=== PATIENT | female | born 2000 | race Native Hawaiian/Other Pacific Islander ===

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

== ENCOUNTER 2019-01-22 17:33 | Outpatient (CLI) | payer OTHER ==
[2019-01-22 18:47] VITALS: BP 133/81; PULSE 98; RESP 18; TEMP 97.9
== END 2019-01-22 18:25 | disposition home or self-care (01) ==
LOC: FBPOP 17:33
PROVIDERS: ATTEND Obstetrics & Gynecology
DX: O26.93 Pregnancy related conditions, unspecified, third trimester (principal); Z3A.32 32 weeks gestation of pregnancy
CPT/HCPCS: 59025; 99213

== ENCOUNTER 2019-03-01 10:19 | Outpatient (CLI) | payer OTHER ==
[2019-03-01 11:10] VITALS: BP 128/67; PULSE 112; RESP 16; TEMP 97.3
--- NOTE | 2019-03-17 14:25 | P.MSEPDOC ---
Presenting Problems - Arrival Data Date of Arrival on Unit: 03/01/19 Time of Arrival on Unit: 10:19 Mode of Transport: Ambulatory - Complaint OB-Reason for Admission/Chief Complaint: Decreased Movement Comment: Pt reports decreased movement x several days Medical History - Information : 1 Para: 0 - Gestational Age Gestational Age by PARIS (wks/days): 37 Weeks and 6 Days Review of Systems - Review of Systems Constitutional: No problems Breast: No problems ENT: No problems Cardiovascular: No problems Respiratory: No problems Gastrointestinal: No problems Genitourinary: No problems Musculoskeletal: No problems Neurological: No problems Vital Signs - Temperature Temperature: 97.3 F Temperature Source: Temporal Artery Scan - Pulse Right Sitting Pulse Oximetery Pulse Rate: 112 Pulse Assessment Method: Pulse Oximetry - Respirations Respiratory Rate: 16 Oxygen Delivery Method: Room Air O2 Sat by Pulse Oximetry: 99 - Blood Pressure Right Arm Sitting Blood Pressure: 128/67 Blood Pressure Mean: 87 Blood Pressure Source: Automatic Cuff Medical Screen Scoring (Pre) - Cervical Exam Dilation: Exam Deferred Effacement: Exam Deferred Membranes: Intact - Uterine Contractions Frequency: > or = 36 weeks =2 Duration: N/A Intensity: N/A - Maternal Vital Signs Maternal Temperature: N/A Maternal Blood Pressure: N/A Signs of Preeclampsia: N/A Maternal Respirations: N/A - Maternal Trauma Maternal Trauma: N/A - Assessment - Baby A Baseline FHR: 145 Heart Rate - NICHD Category: Category I (Normal) = 0 NST: Reactive Position: N/A Station: N/A - Total Score - Baby A Total Score - Baby A: 2 - Total Score - Baby B Total Score - Baby B: 2 - Total Score - Baby C Total Score - Baby C: 2 - Level of Risk - Baby A Level of Risk - Baby A: Low (0-5) - Level of Risk - Baby B Level of Risk - Baby B: Low (0-5) - Level of Risk - Baby C Level of Risk - Baby C: Low (0-5) Physician Notification (Pre) - Physician Notified Physician Notified Date: 03/01/19 Physician Notified Time: 10:52 Physician/Practitioner Notifed:: Josafat Spoke With: Josafat New Order Received: Yes - Notification Comment Comment: Spoke with Dr Maurice, advised 37 10/15, reports to triage with decreased movement. Reactive NST obtained, movement audible and felt by pt. Pt reportst joie medina contractions. Pt has appt . Pt to be D/C'd home. Kick counts and labor precautions to be reviewed Disposition - Disposition OB Disposition: Discharge to home, Written follow up instructions reviewed Discharge Date: 03/01/19 Discharge Time: 11:00 I agree with the RN Medical Screening Exam: Yes Risk & Benefit of care provided described in d/c instruction: Yes Diagnosis: DECREASED MOVEMENTS, THIRD TRIMESTER, FETUS 1
== END 2019-03-01 11:00 | disposition home or self-care (01) ==
LOC: FBPOP 10:19
PROVIDERS: ATTEND Obstetrics & Gynecology Obstetrics
DX: O36.8131 Decreased fetal movements, third trimester, fetus 1 (principal); Z3A.37 37 weeks gestation of pregnancy
CPT/HCPCS: 59025; 99213

== ENCOUNTER 2019-03-09 06:10 | Inpatient (IN) | payer OTHER ==
[2019-03-09] MEDS ORDERED: CARBOPROST TROMETHAMINE 250 MCG/ML 1 ML AMP IM PRN (06:24)
[2019-03-09] MEDS ORDERED: LIDOCAINE 0.5% (PF) 5 MG/ML (50 ML SDV) SQ PRN (06:24)
[2019-03-09] MEDS ORDERED: METHYLERGONOVINE 0.2 MG/ML 1 ML AMP IM PRN (06:24)
[2019-03-09] MEDS ORDERED: TERBUTALINE 1 MG/ML VIAL SQ PRN (06:24)
[2019-03-09] MEDS ORDERED: OXYTOCIN 10 UNIT/ML 1 ML VIAL IM PRN (06:24)
[2019-03-09] MEDS ORDERED: OXYTOCIN 30 UNITS/500 ML NS 30 UNIT in SALINE 1 500ML.BAG IV SCH (06:30)
[2019-03-09 06:33] VITALS: BMI 31.8
[2019-03-09] MEDS: LACTATED RINGERS 1,000 ML IV SCH ×5 (06:35→18:41)
[2019-03-09 06:40] LABS: Basophils % (A) 0 %; Eosinophils # (A) 0.2 k/uL (0-0.7); Eosinophils % (A) 1 %; HCT 37.9 % (34.0-46.0); HGB 12.6 gm/dL (11.4-16.0); Lymphocytes # (A) 2.3 k/uL (1.0-4.8); Lymphocytes % (A) 21 %; MCH 29.3 pg (25.0-35.0); MCHC 33.2 g/dL (31.0-37.0); MCV 88.4 fL (80.0-100.0); Mean Platelet Volume 7.4; Monocytes # (A) 0.5 k/uL (0-1.0); Monocytes % (A) 5 %; Neutrophils # (A) 7.7 k/uL (1.3-7.7); Neutrophils % (A) 70 %; Platelet Count 201 k/uL (150-450); RBC 4.29 m/uL (3.80-5.40); RDW 14.4 % (11.5-15.5)
[2019-03-09] MEDS ORDERED: BUTORPHANOL 1 MG/ML 1 ML VIAL IV PRN (08:50)
--- NOTE | 2019-03-09 08:50 | P.HPOB ---
History of Present Illness H&P Date: 03/09/19 Chief Complaint: IUP at 39 0/sevenths weeks This is a pleasant 18-year-old 1 para 0 at 39-0/7 weeks that presents to labor and delivery for elective induction of labor. Patient has received routine care with myself which has been essentially uncomplicated. Patient notes good movement this morning she denies concerns. On blood work she had a blood type of O+, rubella immune, RPR nonreactive, B surface antigen negative, HIV negative she did pass her one-hour Glucola with a result of 123, T dap was given and she did receive her flu shot on 02/17. Review of Systems Constitutional: Denies chills, Denies fatigue, Denies fever Ears, nose, mouth and throat: Denies headache Cardiovascular: Reports leg edema Gastrointestinal: Denies constipation, Denies diarrhea, Denies nausea, Denies vomiting Genitourinary: Reports Past Medical History History of Any Multi-Drug Resistant Organisms: None Reported Past Surgical History: Ear Surgery Additional Past Surgical History / Comment(s): Tubes as a child Past Anesthesia/Blood Transfusion Reactions: No Reported Reaction Past Psychological History: No Psychological Hx Reported Smoking Status: Never smoker Past Alcohol Use History: None Reported Past Drug Use History: None Reported - Past Family History Mother Family Medical History: Hypertension Additional Family Medical History / Comment(s): Mini Stroke Father Family Medical History: No Reported History Medications and Allergies Home Medications Medication Instructions Recorded Confirmed Type Pnv,Calcium 72/Iron/Folic Acid 1 tab PO DAILY 01/22/19 03/09/19 History [ Plus Tablet] Allergies Allergy/AdvReac Type Severity Reaction Status Date / Time amoxicillin Allergy Rash/Hives Verified 03/09/19 06:23 sumatriptan [From Imitrex] Allergy Anaphylaxis Verified 03/09/19 06:23 Exam Osteopathic Statement: *. No significant issues noted on an osteopathic structural exam other than those noted in the History and Physical/Consult. Vital Signs Temp Pulse Resp BP 03/09/19 06:27 97.0 F L 104 H 18 130/77 Intake and Output 03/08/19 03/09/19 03/09/19 22:59 06:59 14:59 Other: Weight 86.636 kg Targeted physical exam was performed on this date in general this is a well- nourished well-developed female in no acute distress, breathing is noted to be nonlabored, heart is regular rate and rhythm, abdomen is gravid and appropriate for gestational age, heart tones returned be category 1 and she is teresa every 2-3 minutes. On cervical exam she is 3/80/-2 amniotomy is performed and clear fluid was obtained. Results Result Diagrams: 03/09/19 06:30 Assessment and Plan (1) Term Current Visit: Yes Status: Acute Code(s): Z34.90 - ENCNTR FOR SUPRVSN OF NORMAL , UNSP, UNSP TRIMESTER SNOMED Code(s): 63549975 (2) Positive GBS test Current Visit: Yes Status: Acute Code(s): B95.1 - STREPTOCOCCUS, GROUP B, CAUSING DISEASES CLASSD ELSWHR SNOMED Code(s): 546955508 Plan: Patient is admitted to labor for Pitocin induction of labor. Pitocin is started per hospital protocol. Patient does desire epidural and once she starts making cervical change this will be placed by the anesthesia department per patient request. Anticipate spontaneous vaginal delivery later today.
[2019-03-09] MEDS ORDERED: fentaNYL (PF) 50 MCG/ML 5 ML AMP ONE (17:01)
[2019-03-09] MEDS ORDERED: ROPIVACAINE 5MG/ML 20ML VIAL ONE (17:01)
[2019-03-09] MEDS ORDERED: SODIUM CHLORIDE 0.9% 100 ML BAG ONE (17:01)
[2019-03-09] MEDS ORDERED: CITRIC ACID-SODIUM CITRATE 15 ML CUP PO ONE (19:20)
[2019-03-09] MEDS ORDERED: OXYTOCIN 10 UNIT/ML 1 ML VIAL ONE (19:45)
[2019-03-09] MEDS ORDERED: ONDANSETRON 4 MG/2 ML VIAL ONE (19:45)
[2019-03-09] MEDS ORDERED: PHENYLEPHRINE-0.9% NACL SYG 1 MG/10 ML SYRINGE ONE (19:45)
[2019-03-09] MEDS ORDERED: CHLOROPROCAINE 3% 30 MG/ML 20 ML VIAL ONE (19:45)
[2019-03-09] MEDS ORDERED: NALOXONE 0.4 MG/ML 1 ML VIAL IV PRN ×2 (20:05→20:24)
[2019-03-09] MEDS ORDERED: ONDANSETRON 4 MG/2 ML VIAL IVP PRN ×2 (20:05→20:24)
[2019-03-09] MEDS ORDERED: MORPHINE SULFATE 2 MG/ML SYRINGE IVP PRN (20:05)
[2019-03-09] MEDS ORDERED: diphenhydrAMINE 50 MG/ML 1 ML VIAL IVP PRN ×3 (20:05→20:24)
[2019-03-09] MEDS ORDERED: SIMETHICONE 80 MG CHEWABLE PO PRN (20:24)
[2019-03-09] MEDS ORDERED: METOCLOPRAMIDE 5 MG/ML 2 ML VIAL IVP PRN (20:24)
[2019-03-09] MEDS ORDERED: diphenhydrAMINE 50 MG CAP PO PRN (20:24)
[2019-03-09] MEDS ORDERED: ZOLPIDEM 5 MG TAB PO PRN (20:24)
[2019-03-09] MEDS ORDERED: ACETAMINOPHEN TAB 325 MG TAB PO PRN (20:24)
[2019-03-09] MEDS ORDERED: diphenhydrAMINE 25 MG CAP PO PRN (20:24)
--- NOTE | 2019-03-09 20:29 | P.OP ---
Date of Procedure: 03/09/19 Preoperative Diagnosis: IUP @ 39 0/7 weeks, arrest of first stage of labor Postoperative Diagnosis: same Procedure(s) Performed: primary LTCS Anesthesia: epidural Surgeon: Noelle Maurice Private Duty Nurse #1: Isidoro Jennings Estimated Blood Loss (ml): 500 IV fluids (ml): 1,500 Urine output (ml): 200 Pathology: other (placenta) Condition: stable Disposition: observation Indications for Procedure: arrest of dilation for 4 + hours/cervical swelling Operative Findings: Normal uterus tubes and ovaries, female delivered at 1960, weight of 7 lbs. 11 oz. with Apgars of 99 at one and 5 minutes respectively. Description of Procedure: Patient was taken back to the operating suite where epidural anesthesia was found to be adequate. She was prepped and draped in normal sterile fashion in the dorsal supine position. A Pfannenstiel skin incision was made with the scalpel and carried through the underlying layer of fascia. The fascia was then incised in the midline and the incision was extended laterally. The superior aspect of the fascial incision was then grasped lisa clamps, elevated and underlying rectus muscles dissected off sharply. Attention was then turned to the inferior aspect of the fascial incision which was grasped lisa clamps, elevated and underlying rectus muscles dissected off sharply once again. The rectus muscles were then in the midline the peritoneum was identified and entered. The incision was then extended superiorly and inferiorly with good visualization the bladder. Bladder blade was then inserted and the vesicouterine peritoneum was identified and a bladder flap was created using sharp and blunt dissection. A hysterotomy incision was made and the was encountered through the incision and delivered in the usual fashion. The was then handed off to awaiting RN, spontaneous cry was noted. The umbilical cord was then doubly clamped and cut and cord blood was then taken. The placen ta was removed manually and the uterus was cleared of all clots and debris. The uterine incision was then closed with 0 Vicryl in a running locked fashion a second layer of suture was used to obtain hemostasis. On inspection of the hysterotomy site small amount of bleeding was noted in the midportion of the incision and therefore a vijgoq-ny-xyluo suture was used to obtain hemostasis. Uterus was returned to the abdomen and the gutters were cleared of all clots and debris. The hysterotomy incision was inspected once again hemostasis was appreciated. The rectus muscles were then reapproximated. The fascial incision was then closed with 0 Vicryl in a running fashion from one lateral edge to the other. The subcu tissue was then irrigated hemostasis was appreciated and it was closed with 3-0 Vicryl in a running fashion. The skin was then closed with 4-0 Vicryl in a subarticular fashion. All counts were correct 2 patient tolerated procedure well and was taken the recovery room awake in stable condition.
[2019-03-09] MEDS ORDERED: LACTATED RINGERS 1,000 ML IV SCH (20:30)
[2019-03-09] MEDS ORDERED: OXYTOCIN 20 UNITS/1000 ML NS 1,000 ML IV SCH (20:30)
[2019-03-09] MEDS ORDERED: ACETAMINOPHEN IV (For NPO) 1,000 MG in EMPTY BAG 1 BAG IVPB ONE (21:00)
[2019-03-09] MEDS ORDERED: IBUPROFEN IV 800 MG in SODIUM CHLORIDE 0.9% 250 ML IV ONE (21:00)
--- NOTE | 2019-03-10 06:18 | P.PN ---
Progress Note - Text Date: 03/10/2019 Time: 0608 The patient is status post section Vital signs stable VAS: 0-10 Patient has no complaints of pain. The patient incurred some minimal itching yesterday, this itching is now subsiding. Pain meds to be managed by service.
[2019-03-10 07:12] LABS: Basophils # (A) 0.1 k/uL (0-0.2); Basophils % (A) 1 %; Eosinophils # (A) 0.1 k/uL (0-0.7); Eosinophils % (A) 1 %; HCT 30.6 % (34.0-46.0); Lymphocytes # (A) 1.6 k/uL (1.0-4.8); Lymphocytes % (A) 15 %; MCH 27.9 pg (25.0-35.0); MCHC 31.4 g/dL (31.0-37.0); MCV 88.6 fL (80.0-100.0); Monocytes # (A) 0.8 k/uL (0-1.0); Monocytes % (A) 7 %; Neutrophils % (A) 74 %; Platelet Count 171 k/uL (150-450); RBC 3.46 m/uL (3.80-5.40); RDW 14.5 % (11.5-15.5); WBC 10.8 k/uL (4.0-11.0)
[2019-03-10 07:17] LABS: HGB 9.6 gm/dL (11.4-16.0)
--- NOTE | 2019-03-10 08:39 | P.PNOBGPC ---
Subjective - Subjective Principal diagnosis: POD 1 LTCS Interval history: Patient has done well since her last evening. She is ambulating and voiding without difficulty. She notes positive flatus and is tolerating clear liquids without nausea or vomiting. She states her lochia is minimal. She is struggling a little with breast-feeding but continues to try. Patient reports: Reports appetite normal, Reports voiding normally, Reports pain well controlled, Reports ambulating normally : doing well Objective - Vital Signs Latest vital signs: Vital Signs Temp Pulse Resp BP Pulse Ox 03/10/19 07:54 97.7 F 83 16 102/60 97 03/10/19 05:14 98.5 F 104 H 16 117/67 03/10/19 05:00 16 03/10/19 02:54 16 03/10/19 02:00 98.3 F 101 H 16 105/63 99 03/10/19 01:00 16 03/09/19 23:05 16 03/09/19 22:30 97 16 113/60 100 03/09/19 22:00 100 16 138/63 100 03/09/19 21:30 88 16 129/71 100 03/09/19 21:15 92 16 127/60 100 03/09/19 21:05 16 100 03/09/19 21:00 103 H 16 116/59 99 03/09/19 20:45 120 H 16 95/59 100 03/09/19 20:30 98.2 F 123 H 16 90/58 99 03/09/19 20:05 16 100 Intake and Output 03/09/19 03/10/19 03/10/19 22:59 06:59 14:59 Output Total 300 1300 Balance -300 -1300 Output: Urine 300 1300 Uretheral (Jiménez) 150 Other: Voiding Method Indwelling Catheter Indwelling Catheter - Exam Extremities: Present: normal Abdomen: Present: normal appearance, soft Incision: Present: normal, dry, intact Uterus: Present: normal, firm - Labs Labs: Abnormal Lab Results - Last 24 Hours (Table) 03/10/19 Range/Units 06:20 RBC 3.46 L (3.80-5.40) m/uL Hgb 9.6 L D (11.4-16.0) gm/dL Hct 30.6 L (34.0-46.0) % Neutrophils # 8.0 H (1.3-7.7) k/uL Assessment and Plan (1) Term Current Visit: Yes Status: Acute Code(s): Z34.90 - ENCNTR FOR SUPRVSN OF NORMAL , UNSP, UNSP TRIMESTER SNOMED Code(s): 22434992 (2) Positive GBS test Current Visit: Yes Status: Acute Code(s): B95.1 - STREPTOCOCCUS, GROUP B, CAUSING DISEASES CLASSD ELSR SNOMED Code(s): 722004250 (3) S/P section Current Visit: Yes Status: Acute Code(s): Z98.891 - HISTORY OF UTERINE SCAR FROM PREVIOUS SURGERY SNOMED Code(s): 913629603 Plan: Patient is doing well postoperatively, will continue routine postoperative care and anticipate discharge home tomorrow.
[2019-03-10] MEDS: SENNOSIDES-DOCUSATE SODIUM 1 EACH TAB PO SCH ×2 (08:51→20:12)
[2019-03-10] MEDS: PRENATAL VIT-IRON-FOLIC ACID 1 EACH CAP PO SCH (08:51)
[2019-03-10] MEDS: IBUPROFEN 600 MG TAB PO PRN ×2 (12:10→18:30)
[2019-03-10] MEDS: HYDROcodone/APAP 5-325MG 1 EACH TAB PO PRN (23:31)
[2019-03-11] MEDS: IBUPROFEN 600 MG TAB PO PRN ×3 (02:18→18:28)
--- NOTE | 2019-03-11 08:42 | P.PNOBGPC ---
Subjective - Subjective Principal diagnosis: POD 2 LTCS Interval history: Patient continues to do well postoperatively. She is ambulating and voiding without difficulty. She is tolerating a regular diet she diet denies nausea or vomiting. She states her pain is well-controlled. Her is currently in the special care nursery receiving phototherapy for jaundice. Patient reports: Reports appetite normal, Reports voiding normally, Reports pain well controlled, Reports ambulating normally : doing well (In special care nursery receiving phototherapy for jaundice) Objective - Vital Signs Latest vital signs: Vital Signs Temp Pulse Resp BP Pulse Ox 03/11/19 00:00 98.0 F 77 18 106/58 97 03/10/19 20:00 98.1 F 79 18 114/69 03/10/19 15:52 97.7 F 106 H 20 134/63 03/10/19 12:47 16 03/10/19 12:00 97.9 F 78 16 120/59 98 03/10/19 11:00 17 03/10/19 09:00 16 - Exam Extremities: Present: normal, edema Abdomen: Present: normal appearance, soft Incision: Present: normal, dry, intact Uterus: Present: normal, firm Assessment and Plan (1) Term Current Visit: Yes Status: Acute Code(s): Z34.90 - ENCNTR FOR SUPRVSN OF NORMAL , UNSP, UNSP TRIMESTER SNOMED Code(s): 96746021 (2) Positive GBS test Current Visit: Yes Status: Acute Code(s): B95.1 - STREPTOCOCCUS, GROUP B, CAUSING DISEASES CLASSD ELSR SNOMED Code(s): 383614984 (3) S/P section Current Visit: Yes Status: Acute Code(s): Z98.891 - HISTORY OF UTERINE SCAR FROM PREVIOUS SURGERY SNOMED Code(s): 500622208 Plan: Patient is doing well postoperatively given her is in special care nurser y will stay until infant is discharge or postop day 4.
[2019-03-11] MEDS: HYDROcodone/APAP 5-325MG 1 EACH TAB PO PRN ×2 (09:34→22:45)
[2019-03-11] MEDS: SENNOSIDES-DOCUSATE SODIUM 1 EACH TAB PO SCH (09:35)
[2019-03-11] MEDS: PRENATAL VIT-IRON-FOLIC ACID 1 EACH CAP PO SCH (16:20)
[2019-03-12] MEDS: SENNOSIDES-DOCUSATE SODIUM 1 EACH TAB PO SCH ×2 (03:41→09:13)
[2019-03-12] MEDS: IBUPROFEN 600 MG TAB PO PRN (07:23)
--- NOTE | 2019-03-12 09:06 | P.PN ---
Subjective Progress Note Date: 03/12/19 Slept well. Patient wishing discharge home. Minimal pain. No complaints. Objective - Vital Signs Vital signs: Vital Signs Temp 97.9 F 03/11/19 23:00 Pulse 76 03/11/19 23:00 Resp 16 03/11/19 23:00 BP 121/75 03/11/19 23:00 Pulse Ox 99 03/11/19 16:00 - Constitutional General appearance: Present: average body habitus, cooperative - EENT Eyes: Present: PERRLA ENT: Present: hearing grossly normal - Respiratory Respiratory: bilateral: CTA - Cardiovascular Rhythm: regular - Gastrointestinal General gastrointestinal: Present: normal bowel sounds - Integumentary Integumentary Comment(s): Incision clean and dry, intact, Steri-Strips applied. Fundus firm, midline, symmetric, 18 week size, nontender. Integumentary: Present: normal - Neurologic Neurologic: Present: CNII-XII intact - Musculoskeletal Musculoskeletal: Present: gait normal, strength equal bilaterally - Psychiatric Psychiatric: Present: A&O x's 3, appropriate affect, intact judgment & insight - Labs CBC & Chem 7: 03/10/19 06:20 Assessment and Plan Assessment: Doing very well postoperative day #3. Wishing discharge home, however baby staying in the motor vehicle assembly supervisor for phototherapy. Plan: Patient has elected to remain in the hospital for 1 additional day secondary to the baby status. Likely discharge home tomorrow morning. Continue postoperative care Time with Patient: Less than 30
[2019-03-12] MEDS: PRENATAL VIT-IRON-FOLIC ACID 1 EACH CAP PO SCH (11:38)
[2019-03-13] MEDS: SENNOSIDES-DOCUSATE SODIUM 1 EACH TAB PO SCH ×2 (00:22→08:00)
[2019-03-13] MEDS: IBUPROFEN 600 MG TAB PO PRN (01:53)
--- NOTE | 2019-03-13 08:03 | P.DS ---
Providers Date of admission: 03/09/19 06:10 Expected date of discharge: 03/13/19 Attending physician: Noelle Maurice Primary care physician: Stated None Hospital Course: This is a 18-year-old white female 1 para 0 EDC 03/16/2019 at 39 weeks gestation. Patient was admitted on 03/09/2019 for elective induction with favorable cervix. history is significant for positive MTHFR, rubella status immune, blood type O positive, group B strep cultures positive. Please see dictated history and physical for details. Diagnosis of failure to progress was made and patient ultimately underwent a primary low transverse section. She gave to a liveborn female infant, 7 lbs. 11 oz., 3490 g. scores were 9 and 9 at one and 5 minutes respectively. Please see dictated delivery note for details. The baby was kept in the nursery for antibiotics, and then for phototherapy. Patient is doing very well. She is voiding, ambulating, passing flatus without difficulty. Vital signs are stable and she is afebrile. Fundus is firm and in the midline, symmetric and 18 week size. Extremities are negative for edema. Incision is clean and dry, intact, Steri-Strips applied. Breasts are not engorged. Breast-feeding is going well. Patient has a breast pump available to her at home. Patient is being discharged home in good condition. She will follow-up in the office in 2 weeks for incision check. I have reminded her no intercourse, tampons or douching. She will use zqno-[id number] Motrin products, 600 mg every 6 hours as needed for pain. She will continue taking her vitamin daily. I have reminded her to call with any fevers shakes or chills, foul smelling or copious lochia, with the passage of large blood clots, with any pain not alleviated by [id number]-[id number] products, or indeed with any concerns. Patient Condition at Discharge: Good Plan - Discharge Summary Discharge Rx Participant: No New Discharge Prescriptions: No Action Pnv,Calcium 72/Iron/Folic Acid [ Plus Tablet] 1 tab PO DAILY Discharge Medication List Pnv,Calcium 72/Iron/Folic Acid [ Plus Tablet] 1 tab PO DAILY 01/22/19 [History] Follow up Appointment(s)/Referral(s): Noelle Maurice DO [Doctor of Osteopathic Medicine] - 2 Weeks Discharge Disposition: HOME SELF-CARE
[2019-03-13] MEDS: PRENATAL VIT-IRON-FOLIC ACID 1 EACH CAP PO SCH (09:00)
[2019-03-13 09:20] VITALS: BP 118/70; PULSE 76; RESP 20; TEMP 98.1
== END 2019-03-13 11:00 | disposition home or self-care (01) | DRG 787 ==
LOC: 4FBP 06:10
PROVIDERS: ADMIT Obstetrics & Gynecology Obstetrics; ATTEND Obstetrics & Gynecology Obstetrics
PROC: 3E0R3NZ Introduction of Analgesics, Hypnotics, Sedatives into Spinal Canal, Percutaneous Approach (ICD-10-PCS; principal; 2019-03-09 20:00)
PROC: 10907ZC Drainage of Amniotic Fluid, Therapeutic from Products of Conception, Via Natural or Artificial Opening (ICD-10-PCS; principal; 2019-03-09 20:00)
PROC: 10D00Z1 Extraction of Products of Conception, Low, Open Approach (ICD-10-PCS; principal; 2019-03-09 20:00)
PROC: 3E033VJ Introduction of Other Hormone into Peripheral Vein, Percutaneous Approach (ICD-10-PCS; principal; 2019-03-09 20:00)
PROC: 00HU33Z Insertion of Infusion Device into Spinal Canal, Percutaneous Approach (ICD-10-PCS; principal; 2019-03-09 20:00)
DX: O62.0 Primary inadequate contractions (principal); E72.12 Methylenetetrahydrofolate reductase deficiency; O99.824 Streptococcus B carrier state complicating childbirth; Z37.0 Single live birth; Z3A.39 39 weeks gestation of pregnancy; Z82.3 Family history of stroke; Z82.49 Family history of ischemic heart disease and other diseases of the circulatory system; Z88.0 Allergy status to penicillin; Z88.8 Allergy status to other drugs, medicaments and biological substances; O99.284 Endocrine, nutritional and metabolic diseases complicating childbirth
CPT/HCPCS: 85025; 86850; 86900; 86901

== ENCOUNTER 2021-06-08 19:45 | Outpatient (CLI) | payer OTHER, BC ==
[2021-06-08 21:04] LABS: Appearance,Urine Clear (Clear); Bilirubin,Urine Negative (Negative); Blood,Urine Negative (Negative); Color,Urine Light Yellow; Glucose,Urine (UA) Negative (Negative); Ketones,Urine 1+ (Negative); Leukocyte Esterase,Urine Negative (Negative); Nitrite,Urine Negative (Negative); Protein,Urine Negative (Negative); Specific Gravity,Urine 1.004 (1.001-1.035); Urobilinogen,Urine <2.0 mg/dL (<2.0)
[2021-06-08 23:34] VITALS: BP 139/75; PULSE 99; RESP 16; TEMP 96.8
--- NOTE | 2021-06-21 12:50 | P.MSEPDOC ---
Presenting Problems - Arrival Data Date of Arrival on Unit: 06/08/21 Time of Arrival on Unit: 19:45 Mode of Transport: Ambulatory - Complaint OB-Reason for Admission/Chief Complaint: Possible Onset of Labor Comment: Patient arrives to triage with complaints of back pain radiating towards her. lower abdomen since 17:30. She states the pain comes and goes. She rates the pain as a 6/10. Patient appears tearful. Medical History - Information : 2 Para: 1 Term: 1 : 0 Abortions: Spontaneous or Elective: 0 Number of Living Children: 1 - Gestational Age Gestational Age by PARIS (wks/days): 32 Weeks and 3 Days Review of Systems - Review of Systems Constitutional: No problems Breast: No problems ENT: No problems Cardiovascular: No problems Respiratory: No problems Gastrointestinal: No problems Genitourinary: No problems Musculoskeletal: No problems Neurological: No problems Skin: No problems Vital Signs - Temperature Temperature: 96.8 F Temperature Source: Temporal Artery Scan - Pulse Right Brachial Pulse Rate: 99 Pulse Assessment Method: Automatic Cuff - Respirations Respiratory Rate: 16 Oxygen Delivery Method: Room Air - Blood Pressure Right Arm Blood Pressure: 139/75 Blood Pressure Mean: 96 Blood Pressure Source: Automatic Cuff Medical Screen Scoring - Cervical Exam Dilation (cm): 0 Effacement (%): 0 Membranes: Intact - Uterine Contractions Duration From (seconds): 10 Duration To (seconds): 30 Intensity: Mild Resting: Soft to palpation - Assessment - Baby A Baseline FHR: 135 Heart Rate - NICHD Category: Category I (Normal) NST: Reactive Physician Notification - Physician Notified Physician Notified Date: 06/08/21 Physician Notified Time: 21:24 Physician: Zakia Cordon Order Received: Yes - Notification Comment Comment: Patients lab results reported to Dr. Cordon. FFN was negative, urinalysis. normal except for 1+ ketones. Reactive NST. Patients vital signs WNL. Dr. Cordon reviewd monitor strip. Patient to be discharged home with instructions to stay well hydrated and stay home from work until cleared by Dr. Maurice. Patient instructed to call physician office on Thursday for an appt. Patient updated on plan of care and is in agreement. Maternal Triage Index - Maternal Triage Index Presenting for scheduled procedure w/no complaint: No - Stat/Priority 1 Stat Priority 1: No - Urgent/Priority 2 Urgent Priority 2: Yes Provider Notified: Zakia Cordon Provider Notified Time: 21:24 Criteria Met for Priority 2: <34 weeks with c/o uterine contractions Disposition - Disposition OB Disposition: Discharge to home Discharge Date: 06/08/21 Discharge Time: 21:45 I agree with the RN Medical Screening Exam: Yes Case reviewed; plan agreed upon as documented in EMR&OBIX.: Yes Diagnosis: rule out labor
== END 2021-06-08 21:45 | disposition home or self-care (01) ==
LOC: FBPOP 19:45
PROVIDERS: ATTEND Obstetrics & Gynecology
DX: O26.893 Other specified pregnancy related conditions, third trimester (principal); M54.9 Dorsalgia, unspecified; R10.30 Lower abdominal pain, unspecified; Z3A.32 32 weeks gestation of pregnancy; Z88.1 Allergy status to other antibiotic agents; Z88.8 Allergy status to other drugs, medicaments and biological substances
CPT/HCPCS: 59025; 81003; 82731; 99213

== ENCOUNTER 2021-07-16 15:51 | Outpatient (CLI) | payer OTHER ==
[2021-07-16] MEDS ORDERED: LACTATED RINGERS 1,000 ML IV SCH (16:15)
[2021-07-16 16:47] LABS: Amorphous Sediment,Urine Rare /hpf; Appearance,Urine Cloudy (Clear); Bacteria,Urine Rare /hpf; Bilirubin,Urine Negative (Negative); Blood,Urine Small (Negative); Calcium Oxalate Crystals,Urine Rare /hpf; Color,Urine Yellow; Glucose,Urine (UA) Negative (Negative); Ketones,Urine Negative (Negative); Leukocyte Esterase,Urine Negative (Negative); Mucus,Urine Rare /hpf; Nitrite,Urine Negative (Negative); Protein,Urine Trace (Negative); RBC,Urine 87 /hpf (0-5); Specific Gravity,Urine 1.019 (1.001-1.035); Squamous Epithelial Cell,Urine <1 /hpf (0-4); WBC,Urine <1 /hpf (0-5)
[2021-07-16 17:57] VITALS: BP 120/87; PULSE 137; RESP 18; TEMP 97.8
--- NOTE | 2021-09-04 17:55 | P.MSEPDOC ---
Presenting Problems - Arrival Data Date of Arrival on Unit: 07/16/21 Time of Arrival on Unit: 15:51 Mode of Transport: Ambulatory - Complaint OB-Reason for Admission/Chief Complaint: Possible Onset of Labor, Pain Comment: pt arrives states she has been having cramping for the last hour. pt also states she heard a pop sound but hasnt been leaking fluid. Medical History - Information : 2 Para: 1 Term: 1 : 0 Abortions: Spontaneous or Elective: 0 Number of Living Children: 1 - Gestational Age Gestational Age by [place] (wks/days): 37 Weeks and 3 Days - History Complications: Prior Review of Systems - Review of Systems Constitutional: No problems Breast: No problems ENT: No problems Cardiovascular: No problems Respiratory: No problems Gastrointestinal: No problems Genitourinary: No problems Musculoskeletal: No problems Neurological: No problems Skin: No problems Vital Signs - Temperature Temperature: 97.8 F Temperature Source: Oral - Pulse Right Pulse Oximetery Pulse Rate: 137 Pulse Assessment Method: Pulse Oximetry - Respirations Respiratory Rate: 18 Oxygen Delivery Method: Room Air O2 Sat by Pulse Oximetry: 99 - Blood Pressure Right Arm Blood Pressure: 120/87 Blood Pressure Mean: 98 Blood Pressure Source: Automatic Cuff - Comment Vital Signs Comment: following treatment, pts HR to 90s-low 100s Medical Screen Scoring - Cervical Exam Dilation (cm): 1.5 Effacement (%): 50 Station: -2 Membranes: Intact - Uterine Contractions Frequency From (mins): 1 Frequency To (mins): 15 Duration From (seconds): 30 Duration To (seconds): 40 Intensity: Mild Resting: Soft to palpation - Assessment - Baby A Baseline FHR: 135 Heart Rate - NICHD Category: Category I (Normal) NST: Reactive Physician Notification - Physician Notified Physician Notified Date: 07/16/21 Physician Notified Time: 16:57 Physician: Noelle Maurice New Order Received: Yes (order for IV fluids and UA) - Notification Comment Comment: PT treated with IV fluids, Kefzol 2 grams IVPB and sent in prescription for Keflex for pt to pickup. Pt D/C home Maternal Triage Index - Maternal Triage Index Presenting for scheduled procedure w/no complaint: No - Stat/Priority 1 Stat Priority 1: No - Urgent/Priority 2 Urgent Priority 2: Yes Provider Notified: Noelle Maurice Provider Notified Time: 16:57 Criteria Met for Priority 2: Maternal HR elevated - Prompt/Priority 3 Prompt Priority 3: No - Non-Urgent/Priority 4 Non-Urgent Priority 4: No Disposition - Disposition OB Disposition: Discharge to home Discharge Date: 07/16/21 Discharge Time: 17:45 I agree with the RN Medical Screening Exam: Yes Case reviewed; plan agreed upon as documented in EMR&OBIX.: Yes Diagnosis: FALSE LABOR AT OR AFTER 37 COMPLETED WEEKS OF GESTATION
== END 2021-07-16 17:45 | disposition home or self-care (01) ==
LOC: FBPOP 15:51
PROVIDERS: ATTEND Obstetrics & Gynecology Obstetrics
DX: O47.1 False labor at or after 37 completed weeks of gestation (principal); Z3A.37 37 weeks gestation of pregnancy; Z88.1 Allergy status to other antibiotic agents; Z88.6 Allergy status to analgesic agent
CPT/HCPCS: 59025; 96361; 96365; 81001; G0463; J0690; 99214

== ENCOUNTER 2021-07-29 09:27 | Inpatient (IN) | payer BC, OTHER ==
[2021-07-29] MEDS ORDERED: CITRIC ACID-SODIUM CITRATE 15 ML CUP PO ONE (09:43)
[2021-07-29] MEDS: LACTATED RINGERS 1,000 ML IV SCH ×4 (10:09→23:52)
[2021-07-29 10:25] LABS: Basophils # (A) 0.1 k/uL (0-0.2); Basophils % (A) 0 %; Eosinophils # (A) 0.1 k/uL (0-0.7); Eosinophils % (A) 1 %; HCT 35.1 % (34.0-46.0); HGB 11.1 gm/dL (11.4-16.0); Hypochromasia Moderate; Lymphocytes # (A) 2.1 k/uL (1.0-4.8); Lymphocytes % (A) 18 %; MCHC 31.6 g/dL (31.0-37.0); MCV 82.2 fL (80.0-100.0); Mean Platelet Volume 9.4; Monocytes # (A) 0.6 k/uL (0-1.0); Monocytes % (A) 5 %; Neutrophils # (A) 8.3 k/uL (1.3-7.7); Neutrophils % (A) 73 %; Platelet Count 215 k/uL (150-450); RBC 4.26 m/uL (3.80-5.40); RDW 14.4 % (11.5-15.5); WBC 11.3 k/uL (3.8-10.6)
[2021-07-29] MEDS ORDERED: OXYTOCIN 30 UNITS/500 ML NS BAG IV ONE (11:55)
[2021-07-29] MEDS ORDERED: WATER FOR INJECTION, STERILE 10 ML VIAL IV ONE (11:55)
[2021-07-29] MEDS ORDERED: NALBUPHINE 10 MG/ML (1 ML AMP) ONE (11:55)
[2021-07-29] MEDS ORDERED: MORPHINE SULFATE (PF) 0.3 MG/0.3 ML SYR ONE (11:55)
[2021-07-29] MEDS ORDERED: PHENYLEPHRINE-0.9% NACL SYG 1,000 MCG/10 ML SYRINGE ONE (11:55)
[2021-07-29] MEDS ORDERED: ONDANSETRON 4 MG/2 ML VIAL ONE (11:55)
[2021-07-29] MEDS ORDERED: ePHEDrine 50 MG/ML 1 ML VIAL ONE (11:55)
--- NOTE | 2021-07-29 12:03 | P.HPOB ---
History of Present Illness H&P Date: 07/29/21 Chief Complaint: IUP at 39 weeks, history of 1, desires repeat This is a 20-year-old at 39 weeks, EDC 08/03 weeks that presents to labor and delivery for scheduled repeat section. Patient has a prior history of and desires repeat. Patient has been receiving routine care with myself which has been essentially uncomplicated. Patient notes good movement denies vaginal bleeding or loss of fluid. She has a known blood type of O+, rubella status immune, hepatitis B surface antigen negative, HIV negative, RPR is nonreactive, group beta strep culture negative. Review of Systems Constitutional: Denies chills, Denies fatigue, Denies fever Ears, nose, mouth and throat: Denies headache Cardiovascular: Reports leg edema Respiratory: Denies dyspnea Gastrointestinal: Denies nausea, Denies vomiting Genitourinary: Reports Past Medical History Past Medical History: No Reported History History of Any Multi-Drug Resistant Organisms: None Reported Past Surgical History: Ear Surgery Additional Past Surgical History / Comment(s): Tubes as a child Past Anesthesia/Blood Transfusion Reactions: No Reported Reaction Past Psychological History: No Psychological Hx Reported Smoking Status: Never smoker Past Alcohol Use History: None Reported Past Drug Use History: None Reported - Past Family History Mother Family Medical History: Hypertension Additional Family Medical History / Comment(s): Mini Stroke Father Family Medical History: No Reported History Medications and Allergies Home Medications Medication Instructions Recorded Confirmed Type Pnv,Calcium 72/Iron/Folic Acid 1 tab PO DAILY 01/22/19 07/29/21 History [ Plus Tablet] Allergies Allergy/AdvReac Type Severity Reaction Status Date / Time amoxicillin Allergy Rash/Hives Verified 07/16/21 15:59 sumatriptan [From Imitrex] Allergy Anaphylaxis Verified 07/16/21 15:59 Exam Osteopathic Statement: *. No significant issues noted on an osteopathic structural exam other than those noted in the History and Physical/Consult. 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 heart tones noted to be category 1 and she is not teresa. Results Result Diagrams: 07/29/21 10:02 Abnormal Lab Results - Last 24 Hours (Table) 07/29/21 Range/Units 10:02 WBC 11.3 H (3.8-10.6) k/uL Hgb 11.1 L (11.4-16.0) gm/dL Neutrophils # 8.3 H (1.3-7.7) k/uL Assessment and Plan (1) H/O section Current Visit: Yes Status: Acute Code(s): Z98.891 - HISTORY OF UTERINE SCAR FROM PREVIOUS SURGERY SNOMED Code(s): 036357771 (2) Term Current Visit: No Status: Acute Code(s): Z34.90 - ENCNTR FOR SUPRVSN OF NORMAL , UNSP, UNSP TRIMESTER SNOMED Code(s): 75118755 Plan: 20-year-old at 39 weeks of gestation that presents for scheduled repeat section. Patient was counseled on trial of labor after and she elected repeat section. Patient is counseled on risks of surgery including but not limited to infection, bleeding, damage to bladder, bowel, injury. Patient states understanding and wishes to proceed.
[2021-07-29] MEDS ORDERED: diphenhydrAMINE 25 MG CAP PO PRN (12:53)
[2021-07-29] MEDS ORDERED: ZOLPIDEM 5 MG TAB PO PRN (12:53)
[2021-07-29] MEDS ORDERED: NALOXONE 0.4 MG/ML 1 ML VIAL IV PRN (12:53)
[2021-07-29] MEDS ORDERED: SIMETHICONE 80 MG CHEWABLE PO PRN (12:53)
[2021-07-29] MEDS ORDERED: diphenhydrAMINE 50 MG CAP PO PRN (12:53)
[2021-07-29] MEDS ORDERED: diphenhydrAMINE 50 MG/ML 1 ML VIAL IVP PRN ×2 (12:53)
[2021-07-29] MEDS ORDERED: ONDANSETRON 4 MG/2 ML VIAL IVP PRN (12:53)
[2021-07-29] MEDS ORDERED: METOCLOPRAMIDE 5 MG/ML 2 ML VIAL IVP PRN (12:53)
--- NOTE | 2021-07-29 12:59 | P.OP ---
Date of Procedure: 07/29/21 Preoperative Diagnosis: IUP at 39 weeks, history of 1, desires repeat section Postoperative Diagnosis: Same Procedure(s) Performed: Repeat section Anesthesia: spinal Surgeon: Noelle Maurice Medical Device #1: Austin Chow Estimated Blood Loss (ml): 252 IV fluids (ml): 1,000 Urine output (ml): 300 Pathology: none sent Condition: stable Disposition: observation Indications for Procedure: Try to-year-old at 39 weeks gestation presents for elective repeat section. Operative Findings: Normal uterus, tubes and ovaries were appreciated, viable male infant delivered at 1227, weight of 9 lbs. 1 oz., Apgars of 9 and 9 at one and 5 minutes respectively Description of Procedure: Patient was taken back to the operating suite where spinal anesthesia was found be adequate by the anesthesia department. She was then prepped and draped in the normal sterile fashion in the dorsal supine position. A Pfannenstiel skin incision was made with the scalpel, carried through the underlying layer of fascia. The fascia was then incised in the midline and extended laterally. The superior aspect of the fascial incision was then grasped with [place] clamps, elevated and underlying rectus muscle was dissected off sharply. Attention is then turned to the inferior aspect of the fascial incision which was grasped lisa clamps, elevated and underlying rectus muscles dissected off sharply. Rectus muscles were in the midline the peritoneum was identified and entered. A bladder blade was then inserted into the pelvis. The bladder flap was then created using sharp and blunt dissection. The bladder blade was then reinserted into the pelvis. The scalpel is then used to make a hysterotomy incision, this incision was then extended laterally bluntly. Copious clear amniotic fluid was appreciated. The infant was encountered in a vertex presentation, delivered in the usual fashion. The umbilical cord was doubly clamped and cut and the infant was handed to waiting RN. The placenta was then delivered manually, the uterus was delivered from the abdomen. The uterus was then cleared of all clots and debris. The uterine incision was then closed with 0 Vicryl in a running locked fashion, second imbricating suture was then preformed. The gutters were cleared of all clots and debris and the uterus was returned to the abdomen. A small amount of bleeding was noted on the midportion of the hysterotomy incision therefore a [id number] suture was used to obtain hemostasis. The rectus muscles were then loosely reapproximated inspected and found to be hemostatic. Fascia was then closed 0 Vicryl in a running fashion from one lateral edge the midline and the other lateral edge the midline. The subcu taste tissue was then irrigated and any points of bleeding were made hemostatic with the Bovie. The subcu tissue was then closed with 3-0 Vicryl in a running fashion. The skin was then closed with 4-0 Vicryl in a subcuticular fashion. All counts were noted to be correct 2. Patient and tolerated delivery well and are resting comfortably.
[2021-07-29] MEDS ORDERED: OXYTOCIN 30 UNITS/500 ML NS 30 UNIT in SALINE 1 500ML.BAG IV SCH (13:00)
[2021-07-29] MEDS: ACETAMINOPHEN IV (For NPO) 1,000 MG in EMPTY BAG 1 BAG IVPB SCH ×2 (13:21→23:50)
[2021-07-29] MEDS: ACETAMINOPHEN TAB 500 MG TAB PO SCH ×2 (17:24→22:21)
[2021-07-29] MEDS: IBUPROFEN IV 800 MG in SODIUM CHLORIDE 0.9% 250 ML IV SCH (20:09)
[2021-07-29] MEDS: SENNOSIDES-DOCUSATE SODIUM 1 EACH TAB PO SCH (20:10)
[2021-07-29] MEDS: IBUPROFEN 600 MG TAB PO SCH (22:19)
[2021-07-30] MEDS: LACTATED RINGERS 1,000 ML IV SCH ×4 (02:11→14:13)
[2021-07-30] MEDS: IBUPROFEN IV 800 MG in SODIUM CHLORIDE 0.9% 250 ML IV SCH ×3 (02:12→14:13)
[2021-07-30] MEDS: IBUPROFEN 600 MG TAB PO SCH ×4 (03:20→20:04)
[2021-07-30 06:14] LABS: Basophils % (A) 0 %; Eosinophils # (A) 0.1 k/uL (0-0.7); Eosinophils % (A) 1 %; HCT 30.5 % (34.0-46.0); Hypochromasia Moderate; Lymphocytes # (A) 1.5 k/uL (1.0-4.8); Lymphocytes % (A) 15 %; MCH 25.5 pg (25.0-35.0); MCHC 30.8 g/dL (31.0-37.0); MCV 82.7 fL (80.0-100.0); Mean Platelet Volume 9.4; Monocytes # (A) 0.7 k/uL (0-1.0); Monocytes % (A) 7 %; Neutrophils # (A) 7.7 k/uL (1.3-7.7); Neutrophils % (A) 76 %; Platelet Count 183 k/uL (150-450); RBC 3.69 m/uL (3.80-5.40); RDW 14.4 % (11.5-15.5); WBC 10.2 k/uL (3.8-10.6)
[2021-07-30 06:58] LABS: HGB 9.4 gm/dL (11.4-16.0)
--- NOTE | 2021-07-30 07:01 | P.PN ---
Progress Note - Text Progress Note Date: 07/30/21 Postoperative day 1 status post section under spinal anesthesia, and intrathecal morphine given for postoperative analgesia, patient doing well, there is no anesthesia related complications, Patient had no headache, vital signs stable , Assessment and plan= postop day 1 status post , doing well there is no anesthesia related complication.
[2021-07-30] MEDS: PRENATAL VIT-IRON-FOLIC ACID 1 EACH CAP PO SCH (08:39)
[2021-07-30] MEDS: SENNOSIDES-DOCUSATE SODIUM 1 EACH TAB PO SCH ×2 (08:41→20:04)
[2021-07-30] MEDS: ACETAMINOPHEN TAB 500 MG TAB PO SCH ×4 (09:51→23:33)
--- NOTE | 2021-07-30 10:12 | P.PNOBGPC ---
Subjective - Subjective Principal diagnosis: Postop day 1, repeat section Interval history: Patient is doing well postoperatively. She is ambulating and voiding without difficulty. She is tolerating regular diet without nausea or vomiting. Her lochia is minimal. Patient reports: Reports appetite normal, Reports voiding normally, Reports pain well controlled, Reports ambulating normally [place]: doing well Objective - Vital Signs Latest vital signs: Vital Signs Temp Pulse Resp BP Pulse Ox 07/30/21 07:37 97.8 F 81 16 103/67 07/30/21 03:35 97.8 F 89 17 106/65 99 07/30/21 00:15 98.2 F 87 16 108/56 07/29/21 22:06 85 16 07/29/21 20:00 97.5 F L 85 16 105/66 07/29/21 15:00 96.6 F L 75 18 117/65 99 07/29/21 14:30 77 114/56 07/29/21 14:00 97.1 F L 80 18 117/55 100 07/29/21 13:45 76 18 130/59 99 07/29/21 13:30 81 138/60 07/29/21 13:15 97.2 F L 87 18 113/56 98 07/29/21 13:00 96.8 F L 78 18 116/56 Intake and Output 07/29/21 07/30/21 07/30/21 22:59 06:59 14:59 Intake Total 720 480 Output Total 800 400 300 Balance -80 80 -300 Intake: Oral 720 480 Output: Urine 800 400 300 Straight 400 Uretheral (Jiménez) 500 - Exam Extremities: Present: normal, edema Abdomen: Present: normal appearance, aortic enlargement Incision: Present: normal, dry, intact Uterus: Present: normal, firm - Labs Labs: Abnormal Lab Results - Last 24 Hours (Table) 07/29/21 07/30/21 Range/Units 10:02 05:37 WBC 11.3 H (3.8-10.6) k/uL RBC 3.69 L (3.80-5.40) m/uL Hgb 11.1 L 9.4 L D (11.4-16.0) gm/dL Hct 30.5 L (34.0-46.0) % MCHC 30.8 L (31.0-37.0) g/dL Neutrophils # 8.3 H (1.3-7.7) k/uL Assessment and Plan (1) H/O section Current Visit: Yes Status: Acute Code(s): Z98.891 - HISTORY OF UTERINE SCAR FROM PREVIOUS SURGERY SNOMED Code(s): 948352766 (2) Term Current Visit: No Status: Acute Code(s): Z34.90 - ENCNTR FOR SUPRVSN OF NORMAL , UNSP, UNSP TRIMESTER SNOMED Code(s): 24282284 (3) S/P section Current Visit: No Status: Acute Code(s): Z98.891 - HISTORY OF UTERINE SCAR FROM PREVIOUS SURGERY SNOMED Code(s): 897858168 Plan: Patient is doing well postoperatively. Plan to continue routine postoperative care and anticipate discharge home tomorrow.
[2021-07-31] MEDS: IBUPROFEN 600 MG TAB PO SCH ×2 (02:22→11:44)
[2021-07-31] MEDS: SENNOSIDES-DOCUSATE SODIUM 1 EACH TAB PO SCH (08:27)
[2021-07-31] MEDS: PRENATAL VIT-IRON-FOLIC ACID 1 EACH CAP PO SCH (08:27)
[2021-07-31] MEDS: ACETAMINOPHEN TAB 500 MG TAB PO SCH ×2 (08:27→14:36)
--- NOTE | 2021-07-31 09:48 | P.DS ---
Providers Date of admission: 07/29/21 09:27 Expected date of discharge: 07/31/21 Attending physician: Noelle Maurice Primary care physician: Elvin Madrid - Discharge Diagnosis(es) (1) H/O section Current Visit: Yes Status: Acute (2) Term Current Visit: No Status: Acute (3) S/P section Current Visit: No Status: Acute Hospital Course: This is a 20yo at 39 weeks that presented to the hospital for repeat section. she had routine care with myself which was essentially uncomplicated. she had a prior c section for arrest of labor. she elected RCS with this . For full detail on this patient please see the dictatetd history and physical. Patient underwent repeat section without complication, for full details please see the operative report. Patient had a live born male at 1227, weight 9-1. Patients course has been uneventful. On this day 2 she is feeling well, she is ambulating and voiding without difficulty. she states her lochia a minimal. she does desires home today if infant is discharged as well. He is currently being monitored for jaundice. Patient Condition at Discharge: Good Plan - Discharge Summary New Discharge Prescriptions: No Action Pnv,Calcium 72/Iron/Folic Acid [ Plus Tablet] 1 tab PO DAILY Discharge Medication List Pnv,Calcium 72/Iron/Folic Acid [ Plus Tablet] 1 tab PO DAILY 01/22/19 [History] Follow up Appointment(s)/Referral(s): Noelle Maurice DO [Doctor of Osteopathic Medicine] - 2 Weeks Patient Instructions/Handouts: (DC), (GEN) Discharge Disposition: HOME SELF-CARE
[2021-07-31 18:16] VITALS: BP 126/80; PULSE 91; RESP 18; TEMP 97.7
== END 2021-07-31 17:15 | disposition home or self-care (01) | DRG 788 ==
LOC: 4FBP 09:27
PROVIDERS: ADMIT Obstetrics & Gynecology Obstetrics; ATTEND Obstetrics & Gynecology Obstetrics
PROC: 10D00Z1 Extraction of Products of Conception, Low, Open Approach (ICD-10-PCS; principal; 2021-07-29 12:00)
DX: O34.211 Maternal care for low transverse scar from previous cesarean delivery (principal); Z37.0 Single live birth; Z3A.39 39 weeks gestation of pregnancy; Z82.3 Family history of stroke; Z82.49 Family history of ischemic heart disease and other diseases of the circulatory system; Z88.1 Allergy status to other antibiotic agents; Z88.8 Allergy status to other drugs, medicaments and biological substances
CPT/HCPCS: 85025; 86850; 86900; 86901

== ENCOUNTER 2024-03-22 09:48 | Emergency (ER) | payer BC ==
[2024-03-22 09:54] VITALS: RESP 16; TEMP 98.3
--- NOTE | 2024-03-22 10:28 | ED ---
Chest Pain HPI - General Chief Complaint: Chest Pain Stated Complaint: chest pain Time Seen by Provider: 03/22/24 10:08 Source: patient, RN notes reviewed Mode of arrival: ambulatory Limitations: no limitations - History of Present Illness Initial Comments: 23-year-old female with history of GERD presenting to the ER with chief complaint of chest pain x 1 day. States around midnight last night she began to feel a sharp, substernal chest pain radiating to her right shoulder blade. States the pain is a 7 out of 10 at rest and worse with movement. Denies palpitations, fevers, cough, sinus congestion, nausea, vomiting, abdominal pain. Patient has had this chest pain before last year and was seen by cancer registrar where she underwent stress test which was negative. States this did not start after a meal and does not feel similar to GERD. She is a non-smoker. Denies recent surgery, travel, or history of blood clots. - Related Data Home Medications Medication Instructions Recorded Confirmed No Known Home Medications 03/22/24 03/22/24 Allergies Allergy/AdvReac Type Severity Reaction Status Date / Time amoxicillin Allergy Rash/Hives Verified 03/22/24 10:46 Penicillins Allergy Anaphylaxis Verified 03/22/24 10:46 sumatriptan [From Imitrex] Allergy Anaphylaxis Verified 03/22/24 10:46 Review of Systems ROS Statement: Those systems with pertinent positive or pertinent negative responses have been documented in the HPI. ROS Other: All systems not noted in ROS Statement are negative. EKG Findings - EKG Results: EKG: interpreted by ERMD (EKG reveals normal sinus rhythm with no ST changes. Ventricular rate 90 bpm, MO interval 366, QRS duration 95, QT/QTc 363/411. Repeat EKG reveals normal sinus rhythm no ST changes. Ventricular rate 78 bpm, MO interval 194, QRS duration 95, QT/QTc 368/401) Past Medical History Past Medical History: No Reported History Additional Past Medical History / Comment(s): enlarge lymph nodes , SVT History of Any Multi-Drug Resistant Organisms: None Reported Past Surgical History: Section, Ear Surgery Additional Past Surgical History / Comment(s): Tubes as a child, septoplasty Past Anesthesia/Blood Transfusion Reactions: No Reported Reaction Past Psychological History: No Psychological Hx Reported Smoking Status: Never smoker Past Alcohol Use History: None Reported Past Drug Use History: None Reported - Past Family History Mother Family Medical History: Hypertension Additional Family Medical History / Comment(s): Mini Stroke Father Family Medical History: No Reported History General Exam Limitations: no limitations General appearance: alert, in no apparent distress Head exam: Present: atraumatic, normocephalic, normal inspection Eye exam: Present: normal appearance, PERRL, EOMI. Absent: scleral icterus, conjunctival injection, periorbital swelling ENT exam: Present: normal exam, normal oropharynx, mucous membranes moist Neck exam: Present: normal inspection. Absent: tenderness, meningismus, lymphadenopathy Respiratory exam: Present: normal lung sounds bilaterally. Absent: respiratory distress, wheezes, rales, rhonchi, stridor Cardiovascular Exam: Present: regular rate, normal rhythm, normal heart sounds. Absent: systolic murmur, diastolic murmur, rubs, gallop, clicks GI/Abdominal exam: Present: soft, normal bowel sounds. Absent: distended, tenderness, guarding, rebound, rigid Neurological exam: Present: alert, oriented X3 Psychiatric exam: Present: normal affect, normal mood Skin exam: Present: warm, dry, intact, normal color. Absent: rash Course Vital Signs 03/22/24 03/22/24 03/22/24 09:50 10:38 12:00 Temperature 98.3 F Pulse Rate 89 74 Pulse Rate [ 99 Certified Registered Nurse Anesthetist ] Respiratory 16 16 Rate Blood Pressure 135/86 131/62 O2 Sat by Pulse 99 97 Oximetry 03/22/24 12:29 Temperature Pulse Rate 78 Pulse Rate [ Certified Registered Nurse Anesthetist ] Respiratory 16 Rate Blood Pressure 127/58 O2 Sat by Pulse 97 Oximetry Chest Pain MDM - MDM Was pt. sent in by a medical professional or institution (, PA, CABLE HOOKER, urgent care, hospital, or prison...) When possible be specific @ -No Did you speak to anyone other than the patient for history (EMS, parent, family, police, friend...)? What history was obtained from this source @ -No Did you review nursing and triage notes (agree or disagree)? Why? @ -I reviewed and agree with nursing and triage notes Were old charts reviewed (outside hosp., previous admission, EMS record, old EKG, old radiological studies, urgent care reports/EKG's, prison records)? Report findings @ -No old charts were reviewed Differential Diagnosis (chest pain, altered mental status, abdominal pain women, abdominal pain men, vaginal bleeding, weakness, fever, dyspnea, syncope, headache, dizziness, GI bleed, back pain, seizure, CVA, palpatations, mental health, musculoskeletal)? @ -Differential Chest Pain: Stable Angina, Unstable Angina, STEMI, NSTEMI Aortic Dissection, Pneumothorax, Musculoskeletal, Esophageal Spasm GERD, Cholecystitis, Pancreatitis, Zoster, this is not meant to be an all-inclusive list. EKG interpreted by me (3pts min.). @ -As above X-rays interpreted by me (1pt min.). @ -Chest x-ray reveals no acute process CT interpreted by me (1pt min.). @ -None done U/S interpreted by me (1pt. min.). @ -None done What testing was considered but not performed or refused? (CT, X-rays, U/S, labs)? Why? @ -None What meds were considered but not given or refused? Why? @ -None Did you discuss the management of the patient with other professionals (professionals i.e. , PA, CABLE HOOKER, lab, RT, psych nurse, social science professor, strike on machine operator, teacher, tactical/mobile watch officer, senior case manager)? Give summary @ -No Was smoking cessation discussed for >3mins.? @ -No Was critical care preformed (if so, how long)? @ -No Were there social determinants of health that impacted care today? How? (Homelessness, low income, unemployed, alcoholism, drug addiction, transportation, low edu. Level, literacy, decrease access to med. care, [place] [facility], rehab)? @ -No Was there de-escalation of care discussed even if they declined (Discuss DNR or withdrawal of care, Hospice)? DNR status @ -No What co-morbidities impacted this encounter? (DM, HTN, Smoking, COPD, CAD, Cancer, CVA, ARF, Chemo, Hep., AIDS, mental health diagnosis, sleep apnea, morbid obesity)? @ -None Was patient admitted / discharged? Hospital course, mention meds given and route, prescriptions, significant lab abnormalities, going to OR and other pertinent info. @ -Discharge. This is a 23-year-old female presenting with chest pain x 1 day. No cardiac or pulmonary risk factors. Vital signs within acceptable limits. Physical examination unremarkable. Patient was provided with Toradol and Zofran for supportive care. EKG reveals normal sinus rhythm with no ST changes. Lab work including CBC, CMP, lactic acid, troponin, D-dimer unremarkable. Chest x- ray unremarkable. Discussed negative results with patient. Upon reevaluation, patient reports symptoms have improved. I believe it is safe to discharge patient home at this time as symptoms have improved and there is no sign of emergent etiology causing symptoms today. Advised close follow-up with PCP and cancer registrar. Strict return precautions discussed and patient is agreeable to plan. Case was discussed with my ED attending Dr. Gamino. Patient discharged in stable condition. Undiagnosed new problem with uncertain prognosis? @ -No Drug Therapy requiring intensive monitoring for toxicity (Heparin, Nitro, Insulin, Cardizem)? @ -No Were any procedures done? @ -No Diagnosis/symptom? @ -Chest pain Acute, or Chronic, or Acute on Chronic? @ -Acute Uncomplicated (without systemic symptoms) or Complicated (systemic symptoms)? @ -Uncomplicated Side effects of treatment? @ -No Exacerbation, Progression, or Severe Exacerbation? @ -No Poses a threat to life or bodily function? How? (Chest pain, [place], [place], pneumonia, PE, COPD, DKA, ARF, appy, cholecystitis, CVA, Diverticulitis, Homicidal, Suicidal, threat to staff... and all critical care pts) @ -Unlikely at this time Disposition Clinical Impression: Chest pain Disposition: HOME SELF-CARE Condition: Stable Instructions (If sedation given, give patient instructions): Chest Pain (ED) Additional Instructions: Follow-up with PCP and cardiology as discussed. Please return to the Emergency Department if symptoms worsen or any other concerns. Is patient prescribed a controlled substance at d/c from ED?: No Referrals: Elvin Madrid DO [Primary Care Provider] - 1-2 days Time of Disposition: 12:18
--- NOTE | 2024-03-22 10:55 | XR ---
EXAMINATION TYPE: XR chest 2V DATE OF EXAM: 03/22/2024 10:51 AM COMPARISON: Chest radiographs from 06/28/2022, CT chest 06/28/2022 TECHNIQUE: XR chest 2V Frontal and lateral views of the chest. CLINICAL INDICATION:Female, 23 years old with history of chest pain; FINDINGS: Lungs/Pleura: There is no evidence of pleural effusion, focal consolidation, or pneumothorax. Pulmonary vascularity: Unremarkable. Heart/mediastinum: Cardiomediastinal silhouette is unremarkable. Musculoskeletal: No acute osseous pathology. IMPRESSION: No acute cardiopulmonary disease/process. [facility], , 03/22/2024 10:53 AM
[2024-03-22 10:58] LABS: Basophils % (A) 0 %; Eosinophils # (A) 0.2 k/uL (0-0.7); Eosinophils % (A) 2 %; HCT 39.5 % (34.0-46.0); HGB 12.8 gm/dL (11.4-16.0); Lymphocytes # (A) 1.8 k/uL (1.0-4.8); Lymphocytes % (A) 27 %; MCH 27.8 pg (25.0-35.0); MCHC 32.4 g/dL (31.0-37.0); MCV 85.9 fL (80.0-100.0); Mean Platelet Volume 8.2; Monocytes # (A) 0.3 k/uL (0-1.0); Monocytes % (A) 4 %; Neutrophils # (A) 4.2 k/uL (1.3-7.7); Neutrophils % (A) 64 %; Platelet Count 220 k/uL (150-450); RDW 12.5 % (11.5-15.5); WBC 6.6 k/uL (3.8-10.6)
[2024-03-22] MEDS: ONDANSETRON 4 MG/2 ML VIAL IVP STA (11:12)
[2024-03-22] MEDS: KETOROLAC 15 MG/ML 1 ML VIAL IVP STA (11:12)
[2024-03-22 11:19] LABS: ALT 15 U/L (4-34); AST 23 U/L (14-36); African American GFR (CKD) >90 (>60 ml/min/1.73 sqM); Albumin 4.6 g/dL (3.5-5.0); Alkaline Phosphatase 42 U/L (38-126); Anion Gap 9 mmol/L; Blood Urea Nitrogen 12 mg/dL (7-17); Calcium 9.3 mg/dL (8.4-10.2); Carbon Dioxide 26 mmol/L (22-30); Chloride 105 mmol/L (98-107); Glucose 100 mg/dL (74-99); Non-African American GFR(CKD) >90 (>60 ml/min/1.73 sqM); Potassium 4.3 mmol/L (3.5-5.1); Sodium 140 mmol/L (137-145); Total Bilirubin 0.6 mg/dL (0.2-1.3); Total Protein 7.7 g/dL (6.3-8.2)
[2024-03-22 12:31] VITALS: BP 127/58; PULSE 78
== END 2024-03-22 12:30 | disposition home or self-care (01) ==
LOC: EC 09:48
DX: R07.89 Other chest pain (principal); Z88.0 Allergy status to penicillin; Z88.8 Allergy status to other drugs, medicaments and biological substances
CPT/HCPCS: 36415; 93005; 85379; 80053; 83605; 84484; 85025; 81025; 87636; 71046; 99285; 96374; 96375; J2405; J1885

== ENCOUNTER 2024-06-28 16:45 | Emergency (ER) | payer BC, MEDICAID ==
[2024-06-28 18:08] LABS: Basophils % (A) 0 %; Eosinophils # (A) 0.1 k/uL (0-0.7); Eosinophils % (A) 2 %; HCT 42.2 % (34.0-46.0); HGB 13.6 gm/dL (11.4-16.0); Lymphocytes # (A) 0.8 k/uL (1.0-4.8); Lymphocytes % (A) 18 %; MCH 27.7 pg (25.0-35.0); MCHC 32.2 g/dL (31.0-37.0); MCV 86.2 fL (80.0-100.0); Monocytes # (A) 0.3 k/uL (0-1.0); Monocytes % (A) 7 %; Neutrophils % (A) 70 %; Platelet Count 201 k/uL (150-450); RDW 12.8 % (11.5-15.5); WBC 4.4 k/uL (3.8-10.6)
[2024-06-28 18:17] LABS: Appearance,Urine Cloudy (Clear); Bilirubin,Urine Negative (Negative); Blood,Urine Small (Negative); Color,Urine Colorless; Glucose,Urine (UA) Negative (Negative); Ketones,Urine Negative (Negative); Leukocyte Esterase,Urine Negative (Negative); Mucus,Urine Occasional /hpf; Nitrite,Urine Negative (Negative); PH, Urine 5.5 (5.0-8.0); Protein,Urine Negative (Negative); RBC,Urine <1 /hpf (0-5); Specific Gravity,Urine 1.008 (1.001-1.035); Squamous Epithelial Cell,Urine 1 /hpf (0-4); Urobilinogen,Urine <2.0 mg/dL (<2.0); WBC,Urine <1 /hpf (0-5)
--- NOTE | 2024-06-28 18:21 | ED ---
Female Urogenital HPI - General Chief complaint: Vaginal Bleeding Stated complaint: Flu A+,Vaginal bleeding(6 weeks preg) Time Seen by Provider: 06/28/24 17:20 Source: patient, RN notes reviewed Mode of arrival: ambulatory Limitations: no limitations - History of Present Illness Initial comments: This is a 23-year-old female who presents to the emergency department for vaginal bleeding in . Patient is and approximately 6 weeks . States that a couple of hours ago she started to develop vaginal bleeding with lower abdominal cramping. Additionally, she tested positive for influenza yesterday and symptoms began the day prior. Not currently taking Tamiflu. Denies any chest pain or shortness of breath. She has an upcoming ap pointment with Dr. Maurice, [employer], but has not yet seen her. - Related Data Previous Rx's Medication Instructions Recorded Oseltamivir [Tamiflu] 75 mg PO Q12HR 5 Days #10 cap 06/28/24 Allergies Allergy/AdvReac Type Severity Reaction Status Date / Time amoxicillin Allergy Rash/Hives Verified 06/28/24 17:15 Penicillins Allergy Anaphylaxis Verified 06/28/24 17:15 sumatriptan [From Imitrex] Allergy Anaphylaxis Verified 06/28/24 17:15 Review of Systems ROS Statement: Those systems with pertinent positive or pertinent negative responses have been documented in the HPI. ROS Other: All systems not noted in ROS Statement are negative. Past Medical History Past Medical History: No Reported History Additional Past Medical History / Comment(s): enlarge lymph nodes , SVT History of Any Multi-Drug Resistant Organisms: None Reported Past Surgical History: Section, Ear Surgery Additional Past Surgical History / Comment(s): Tubes as a child, septoplasty Past Anesthesia/Blood Transfusion Reactions: No Reported Reaction Past Psychological History: No Psychological Hx Reported Smoking Status: Never smoker Past Alcohol Use History: None Reported Past Drug Use History: None Reported - Past Family History Mother Family Medical History: Hypertension Additional Family Medical History / Comment(s): Mini Stroke Father Family Medical History: No Reported History General Exam Limitations: no limitations General appearance: alert, in no apparent distress Head exam: Present: atraumatic, normocephalic, normal inspection Respiratory exam: Present: normal lung sounds bilaterally. Absent: respiratory distress, wheezes, rales, rhonchi, stridor Cardiovascular Exam: Present: regular rate, normal rhythm, normal heart sounds. Absent: systolic murmur, diastolic murmur, rubs, gallop, clicks Neurological exam: Present: alert, oriented X3, CN II-XII intact Psychiatric exam: Present: normal affect, normal mood Skin exam: Present: warm, dry, intact, normal color. Absent: rash Course Vital Signs 06/28/24 06/28/24 17:13 18:55 Temperature 102.3 F H 100.7 F H Pulse Rate 146 H 111 H Respiratory 24 16 Rate Blood Pressure 131/87 122/82 O2 Sat by Pulse 99 97 Oximetry Medical Decision Making - Medical Decision Making This is a 23-year-old female who presents to the emergency department for vaginal bleeding in . Was pt. sent in by a medical professional or institution? @ -No Did you speak to anyone other than the patient for history? @ -No Did you review nursing and triage notes? @ -Yes, and I agree, it is accurate with regards to the patient's symptoms. Were old charts reviewed? @ -No Differential Diagnosis? @ -Differential Vaginal Bleeding: Spontaneous , threatened , molar , ectopic , incompetent cervix, placenta previa, uterine rupture, dysfunctional uterine bleeding, hemorrhage, uterine fibroids, malignancy, coagulopathy, PID , cervicitis, adenomyosis, vaginal trauma, this is not meant to be an all- inclusive list. EKG interpreted by me (3pts min.)? @ -Not obtained X-rays interpreted by me (1pt min.)? @ -Not obtained CT interpreted by me (1pt min.)? @ -Not obtained U/S interpreted by me (1pt. min.)? @ -Obstetrics ultrasound obtained. My interpretation is unable to identify an IUP. What testing was considered but not performed? (CT, X-rays, U/S, labs)? Why? @ -None What meds were considered but not given? Why? @ -None Did you discuss the management of the patient with other professionals? @ -No Did you reconcile home meds? @ -No Was smoking cessation discussed for >3mins.? @ -No Was critical care preformed (if so, how long)? @ -No Were there social determinants of health that impacted care today? How? (Homelessness, low income, unemployed, alcoholism, drug addiction, transportation, low edu. Level, literacy, decrease access to med. care, senior care, rehab)? @ -No Was there de-escalation of care discussed even if they declined? (Discuss DNR or withdrawal of care, Hospice)? @ -No What co-morbidities impacted this encounter? (DM, HTN, Smoking, COPD, CAD, Cancer, CVA, Hep., AIDS, mental health diagnosis, sleep apnea, morbid obesity)? @ - Was patient admitted / discharged? @ -Discharged. Lab work unremarkable. She is Rh+ and no RhoGAM is indicated. Urinalysis negative for signs of infection. Obstetrics ultrasound is unable to visualize anything, potentially due to gestational age. Based on the hCG count of 48.5, this is to be expected. She was febrile on arrival secondary to recent influenza diagnosis. Tylenol was administered. Lab order provided to have her hCG count repeated in the next 48 hours. Tamiflu also prescribed given current recommendations are for women to take this. Advised she continue with Tylenol as needed for any additional fevers and follow-up with her [employer]. Patient discharged home in stable condition. Case discussed with ED attending Dr. Amor. Return precautions reviewed in depth, the patient is instructed to return to the emergency department with any new, worsening, or concerning symptoms. Patient verbalized understanding. Rh positive Undiagnosed new problem with uncertain prognosis? @ -None Drug Therapy requiring intensive monitoring for toxicity (Heparin, Nitro, Insulin, Cardizem)? @ -None Were any procedures done? @ -None Diagnosis/symptom? @ -Vaginal bleeding in , influenza Acute, or Chronic, or Acute on Chronic? @ -Acute Uncomplicated (without systemic symptoms) or Complicated (systemic symptoms)? @ -Uncomplicated Side effects of treatment? @ -None Exacerbation, Progression, or Severe Exacerbation] @ -Not applicable Poses a threat to life or bodily function? @ -No - Lab Data Result diagrams: 06/28/24 18:06/28/24 18: Lab Results 06/28/24 06/28/24 06/28/24 Range/Units 18: 18: 18: WBC 4.4 (3.8-10.6) k/uL RBC 4.90 (3.80-5.40) m/uL Hgb 13.6 (11.4-16.0) gm/dL Hct 42.2 (34.0-46.0) % MCV 86.2 (80.0-100.0) fL MCH 27.7 (25.0-35.0) pg MCHC 32.2 (31.0-37.0) g/dL RDW 12.8 (11.5-15.5) % Plt Count 201 (150-450) k/uL MPV 8.0 Neutrophils % 70 % Lymphocytes % 18 % Monocytes % 7 % Eosinophils % 2 % Basophils % 0 % Neutrophils # 3.0 (1.3-7.7) k/uL Lymphocytes # 0.8 L (1.0-4.8) k/uL Monocytes # 0.3 (0-1.0) k/uL Eosinophils # 0.1 (0-0.7) k/uL Basophils # 0.0 (0-0.2) k/uL Sodium 137 (137-145) mmol/L Potassium 3.7 (3.5-5.1) mmol/L Chloride 101 (98-107) mmol/L Carbon Dioxide 25 (22-30) mmol/L Anion Gap 11 mmol/L BUN 5 L (7-17) mg/dL Creatinine 0.60 (0.52-1.04) mg/dL Est GFR (CKD-EPI)AfAm >90 (>60 ml/min/1.73 sqM) Est GFR (CKD-EPI)NonAf >90 (>60 ml/min/1.73 sqM) Glucose 138 H (74-99) mg/dL Calcium 9.1 (8.4-10.2) mg/dL Total Bilirubin 0.3 (0.2-1.3) mg/dL AST 32 (14-36) U/L ALT 29 (4-34) U/L Alkaline Phosphatase 45 (38-126) U/L Total Protein 7.6 (6.3-8.2) g/dL Albumin 4.7 (3.5-5.0) g/dL HCG, Quant 48.5 mIU/mL Urine Color Colorless Urine Appearance Cloudy H (Clear) Urine pH 5.5 (5.0-8.0) Ur Specific [place] 1.008 (1.001-1.035) Urine Protein Negative (Negative) Urine Glucose (UA) Negative (Negative) Urine Ketones Negative (Negative) Urine Blood Small H (Negative) Urine Nitrite Negative (Negative) Urine Bilirubin Negative (Negative) Urine Urobilinogen <2.0 (<2.0) mg/dL Ur Leukocyte Esterase Negative (Negative) Urine RBC <1 (0-5) /hpf Urine WBC <1 (0-5) /hpf Ur Squamous Epith Cells 1 (0-4) /hpf Urine Mucus Occasional H (None) /hpf Blood Type Blood Type Recheck Bld Type Recheck Status 06/28/24 Range/Units 18:47 WBC (3.8-10.6) k/uL RBC (3.80-5.40) m/uL Hgb (11.4-16.0) gm/dL Hct (34.0-46.0) % MCV (80.0-100.0) fL MCH (25.0-35.0) pg MCHC (31.0-37.0) g/dL RDW (11.5-15.5) % Plt Count (150-450) k/uL MPV Neutrophils % % Lymphocytes % % Monocytes % % Eosinophils % % Basophils % % Neutrophils # (1.3-7.7) k/uL Lymphocytes # (1.0-4.8) k/uL Monocytes # (0-1.0) k/uL Eosinophils # (0-0.7) k/uL Basophils # (0-0.2) k/uL Sodium (137-145) mmol/L Potassium (3.5-5.1) mmol/L Chloride (98-107) mmol/L Carbon Dioxide (22-30) mmol/L Anion Gap mmol/L BUN (7-17) mg/dL Creatinine (0.52-1.04) mg/dL Est GFR (CKD-EPI)AfAm (>60 ml/min/1.73 sqM) Est GFR (CKD-EPI)NonAf (>60 ml/min/1.73 sqM) Glucose (74-99) mg/dL Calcium (8.4-10.2) mg/dL Total Bilirubin (0.2-1.3) mg/dL AST (14-36) U/L ALT (4-34) U/L Alkaline Phosphatase (38-126) U/L Total Protein (6.3-8.2) g/dL Albumin (3.5-5.0) g/dL HCG, Quant mIU/mL Urine Color Urine Appearance (Clear) Urine pH (5.0-8.0) Ur Specific [place] (1.001-1.035) Urine Protein (Negative) Urine Glucose (UA) (Negative) Urine Ketones (Negative) Urine Blood (Negative) Urine Nitrite (Negative) Urine Bilirubin (Negative) Urine Urobilinogen (<2.0) mg/dL Ur Leukocyte Esterase (Negative) Urine RBC (0-5) /hpf Urine WBC (0-5) /hpf Ur Squamous Epith Cells (0-4) /hpf Urine Mucus (None) /hpf Blood Type O Positive Blood Type Recheck O Pos Bld Type Recheck Status ABR ONLY - Radiology Data Radiology results: report reviewed, image reviewed Disposition Clinical Impression: Vaginal bleeding in , Influenza A Disposition: HOME SELF-CARE Additional Instructions: Return to the emergency department with any new, worsening, or concerning symptoms. Take the lab slip to have your hCG count repeated in the next 48 hours. It is currently 48.5 and it should double in 48 hours. Continue to take Tylenol as needed for any fevers. In general you can have most [id number] cough medications as long as they do not contain alcohol, aspirin, or any other anti-inflammatories. Take the Tamiflu as prescribed for 5 days. Follow-up with your [employer]. Prescriptions: Oseltamivir [Tamiflu] 75 mg PO Q12HR 5 Days #10 cap Is patient prescribed a controlled substance at d/c from ED?: No Referrals: Elvin Madrid DO [Primary Care Provider] - 1-2 days Time of Disposition: 19:27
[2024-06-28 18:45] LABS: ALT 29 U/L (4-34); AST 32 U/L (14-36); African American GFR (CKD) >90 (>60 ml/min/1.73 sqM); Albumin 4.7 g/dL (3.5-5.0); Alkaline Phosphatase 45 U/L (38-126); Anion Gap 11 mmol/L; Blood Urea Nitrogen 5 mg/dL (7-17); Calcium 9.1 mg/dL (8.4-10.2); Carbon Dioxide 25 mmol/L (22-30); Chloride 101 mmol/L (98-107); Glucose 138 mg/dL (74-99); Non-African American GFR(CKD) >90 (>60 ml/min/1.73 sqM); Potassium 3.7 mmol/L (3.5-5.1); Sodium 137 mmol/L (137-145); Total Bilirubin 0.3 mg/dL (0.2-1.3); Total Protein 7.6 g/dL (6.3-8.2)
[2024-06-28] MEDS: SODIUM CHLORIDE 0.9% 2,000 ML IV STA (18:47)
[2024-06-28] MEDS: ACETAMINOPHEN IV (For NPO) 1,000 MG in EMPTY BAG 1 BAG IVPB STA (18:49)
[2024-06-28 19:00] VITALS: BP 122/82; PULSE 111; RESP 16; TEMP 100.7
[2024-06-28 19:01] LABS: HCG,Quantitative Serum 48.5 mIU/mL
--- NOTE | 2024-06-28 19:12 | US ---
EXAMINATION TYPE: Transabdominal DATE OF EXAM: 06/28/2024 6:43 PM COMPARISON: NONE CLINICAL INDICATION: Female, 23 years old with history of Vaginal bleeding, 6 weeks ; Patient states 6 weeks , passing clots and cramping. TECHNIQUE: Transvaginal (TV) and Transabdominal (TA) with grayscale and color Doppler imaging includi ng first trimester . FINDINGS: EXAM MEASUREMENTS: GESTATIONAL AGE / DATING Physician Established: Not yet established Dates by LMP: (6 weeks/2 days) EDC: 02/19/2025 Dates by First Scan: No previous this is first scan Dates by Current Scan for: No IUP seen at this t maria luisa MATERNAL ANATOMY Uterus: 8.5 x 4.3 x 4.8cm. There is no IUP seen at this time. The endometrium appears thickened at 1. 7cm and is slightly heterogeneous Right Ovary: 3.6 x 2.2 x 1.8cm. wnl as best seen Left Ovary: 2/.8 x 2.7 x 2.7cm. wnl as best seen Post CDS / Adnexa: trace amount of free fluid seen within the CDS Presence of free fluid: small amount in CDS Presence of corpus luteal cyst: not seen Presence of subchorionic bleed: not seen GESTATION / SURVEY IUP: No IUP seen at this time Date of LMP: 05/15/2024 Beta HcG (if available): not ordered per physician at this time IMPRESSION: No evidence for intrauterine at this time, findings could represent failed versus ectopic versus abnormal intrauterine . Close clinical follow-up and serial beta-h CG recommended. [facility], , 06/28/2024 7:10 PM
== END 2024-06-28 19:51 | disposition home or self-care (01) ==
LOC: EC 16:45
DX: O20.9 Hemorrhage in early pregnancy, unspecified (principal); J10.1 Influenza due to other identified influenza virus with other respiratory manifestations; Z88.0 Allergy status to penicillin; Z88.8 Allergy status to other drugs, medicaments and biological substances; Z3A.01 Less than 8 weeks gestation of pregnancy
CPT/HCPCS: 36415; 86900; 86901; 80053; 85025; 81001; 84702; 76801; 76817; 99284; 96360; J0131

== ENCOUNTER → 2024-07-05 | Outpatient (CLI) | payer MEDICAID | END | disposition home or self-care (01) | LOC: LABWHC1 15:28 | PROVIDERS: ATTEND Obstetrics & Gynecology Obstetrics | DX: O03.9 Complete or unspecified spontaneous abortion without complication (principal) | CPT/HCPCS: 36415; 84702 ==